=== PATIENT | female | born 1990 | race Two or more races ===

== ENCOUNTER 2025-05-04 15:25 | Emergency (ER) | payer MEDICAID, SELFPAY ==
[2025-05-04 15:30] VITALS: BP 136/73; PULSE 119; RESP 20; TEMP 36.9; O2SAT 95
--- NOTE | 2025-05-04 16:18 | PD.EDADULT ---
ED General RME/HPI General Chief complaint: General Adult/Misc Complain Stated complaint: SOMETHING IS UP MY VAGINA THAT I CAN'T GET OUT Time Seen by Provider: 05/04/25 15:31 Arrival date/time: 05/04/25 15:25 RME / HPI RME / HPI narrative: 35 year old female, A2, presents to the ED for evaluation of a retained tampon. She reports that approximately 4 hours ago, she used tightly rolled toilet paper as a makeshift tampon. The patient went out afterward, consumed alcohol, and had sexual intercourse. Later, she remembered the tampon and attempted removal but was unsuccessful. Denies any associated symptoms such as vaginal pain, abnormal discharge. Related Data Previous Rx's ?Medication ?Instructions ?Recorded Vitamin * 1 tab PO QDAY #30 tabs 09/03/15 Allergies Allergy/AdvReac Type Severity Reaction Status Date / Time No Known Allergies Allergy Verified 05/04/25 15:28 Review of Systems Review of Systems Systems Reviewed: All systems reviewed, normal except as documented Past Medical History Social History SMOKING STATUS: Current some day smoker ED Exam Narrative Physical exam: Constitutional: Awake, alert, nontoxic, no acute distress HEENT: NC, AT, EOMI Neck: Supple CV: RRR, no m/r/g Lungs: CTAB, no respiratory distress. Abd: Soft, NT, NT, no HSM noted to palpation : Moderately large amount of retained foreign body in the vaginal vault consistent with blood soaked tissue. Extremities: No deformities Neuro: AAOx3 Skin: Warm, dry, intact Course Course Course Narrative: Moderately large amount of retained foreign body in the vaginal vault consistent with blood soaked tissue. This was all removed with ring forceps. The patient was examined with speculum and no further foreign bodies found. Quality Measures none Vital Signs Vital signs: Vital Signs Temperature 98.4 F 05/04/25 15:30 Pulse Rate 119 H 05/04/25 15:30 Respiratory Rate 20 05/04/25 15:30 Blood Pressure 136/73 H 05/04/25 15:30 Pulse Oximetry (%) 95 05/04/25 15:30 Oxygen Delivery Method Room Air 05/04/25 15:30 Pulse ox is 95% on room air which is adequate. Discharge Plan Plan Patient Disposition: HOME (Self Care) Patient condition on transfer: Stable Prescriptions/Referrals Prescriptions/Med Rec: No Action Vitamin * 1 EACH tablet 1 tab PO QDAY Qty: 30 11RF Problem List Clinical Impression: Retained tampon Patient/Caregiver Discharge Instructions Education Materials: ED FOREIGN BODY Vaginal Adult Additional Instructions: Additional mental health resources can be found at [email or web address] Chew, look under resources, seminars. Print Language: Kinyarwanda Stand Alone Forms: Delmi Award Info., Patient Portal Info Letter MDM Narrative MDM hospital course: Stcay Rivera am scribing for and in the presence of Dr. Adams. Clinical Information Provided by patient Medical Records Reviewed None Meds/Rx Considered, not Ordered None Labs/Rad/Tests considered, not Ordered None Chronic Illness/Social Conditions which may negatively complicate care or outcome(s)-explain: ETOH/drugs/substance abuse EKG EKG not done Lab Interpretation Labs: none Imaging Imaging interpretation: none Medication Administration(s) none Diagnosis Most likely dx, and/or detailed dx discussion: Retained tampon Dispositon Disposition: Discharge Home
== END 2025-05-04 17:30 | disposition left against medical advice (07) ==
LOC: SERX 16:39
PROVIDERS: Emergency Provider Family Medicine
DX: T19.2XXA Foreign body in vulva and vagina, initial encounter (principal); W44.9XXA Unspecified foreign body entering into or through a natural orifice, initial encounter
CPT/HCPCS: 99282

== ENCOUNTER 2025-05-10 19:08 | Emergency (ER) | payer MEDICAID, SELFPAY ==
[2025-05-10 19:26] VITALS: BMI 24.5
--- NOTE | 2025-05-10 19:30 | EKG_ITS ---
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: : 1990 Requested By: Collette Bonilla Order Number: [id number] Reading MD: Collette Bonilla Measurements Intervals [place] Rate: 80 P: 71 SD: 136 QRS: -85 QRSD: 88 T: 63 QT: 391 QTc: 454 Interpretive Statements SINUS RHYTHM WITH OCCASIONAL VENTRICULAR PREMATURE COMPLEXES INDETERMINATE AXIS LOW QRS VOLTAGE IN PRECORDIAL LEADS [QRS DEFLECTION < 1.0 mV IN CHEST LEADS] PATTERN CONSISTENT WITH PULMONARY DISEASE POSSIBLE RIGHT VENTRICULAR CONDUCTION DELAY [RSR (QR) IN V1/V2] LEFT ANTERIOR FASCICULAR BLOCK [QRS AXIS <= -45, QR IN I, RS IN II] POSSIBLE SEPTAL MYOCARDIAL INFARCTION , PROBABLY OLD [30 ms Q WAVE IN V1/V2] No previous ECG available for comparison /store/S0/[id number]/[id number].pdf
--- NOTE | 2025-05-10 19:30 | XR_ITS ---
Examination: PA chest single view TECHNIQUE: Upright PA chest single view Date and time: May 10, 2025 1949 hours INDICATIONS: Cardiac palpitations today. FINDINGS: Normal heart size. Lungs are clear. Osseous structures are intact. IMPRESSION: No active disease.
--- NOTE | 2025-05-10 19:32 | PD.EDALCOH ---
ED Alcohol RME/HPI General Chief Complaint: Alcohol Stated Complaint: ETOH WITHDRAWL Time Seen by Provider: 05/10/25 19:17 Source: patient and family Arrival date/time: 05/10/25 19:08 Mode of arrival: ambulatory Limitations: no limitations RME / HPI RME / HPI narrative: Patient is here with alocohol intoxication and anxiety. She states person's close to her have recently. Just prior to her arrival, she felt anxious, had palpitations, and had distal parethesias. Related Data Previous Rx's ?Medication ?Instructions ?Recorded Vitamin * 1 tab PO QDAY #30 tabs 09/03/15 Allergies Allergy/AdvReac Type Severity Reaction Status Date / Time No Known Allergies Allergy Verified 05/10/25 19:25 Review of Systems Review of Systems Systems Reviewed: All systems reviewed, normal except as documented ED Exam General Limitations: Present no limitations General appearance: Present alert and appears intoxicated Head Head exam: Present atraumatic Eye Eye exam: Present normal appearance, PERRL and EOMI ENT ENT exam: Present normal exam, normal oropharynx and mucous membranes moist Neck Neck exam: Present normal inspection, full ROM and trachea midline Chest Chest inspection: Present normal inspection and symmetric chest wall rise Respiratory Respiratory exam: Present normal lung sounds bilaterally Cardiovascular Cardiovascular exam: Present regular rate, normal rhythm and normal heart sounds Abdominal Exam Abdominal exam: Present soft and normal bowel sounds Extremities Exam Extremities exam: Present normal inspection and full ROM Back Exam Back exam: Present normal inspection and full ROM Neurological Exam Neurological exam: Present alert and oriented X3 Psychiatric Psychiatric exam: Present other (Anxious, depressed, and tearful) Skin Skin exam: Present warm, dry, intact and normal color Course Quality Measures none Orders Category Date Time Status EKG (ED ONLY) *Do not use* NOW Care 05/10/25 19:30 Completed EKG (ED Only) Stat Exams 05/10/25 19:30 Draft XR chest 1V Stat Exams 05/10/25 19:30 Completed Alcohol, Blood Medical Stat Lab 05/10/25 20:00 Completed BNP [B-Type Natriuretic Peptide] Stat Lab 05/10/25 20:00 Completed CBC Stat Lab 05/10/25 20:00 Completed CMP [Comprehensive Metabolic Panel] Stat Lab 05/10/25 20:00 Completed Drug Screen,Urine Stat Lab 05/10/25 20:30 Completed HCG,Qualitative Serum Stat Lab 05/10/25 20:00 Completed Lipase Stat Lab 05/10/25 20:00 Completed Mag [Magnesium] Stat Lab 05/10/25 20:00 Completed TSH [Thyroid Stimulating Hormone] Stat Lab 05/10/25 20:00 Completed Troponin I Stat Lab 05/10/25 20:00 Completed Vital Signs Vital signs: Vital Signs Temperature 98.4 F 05/10/25 20:08 Pulse Rate 74 05/10/25 20:08 Respiratory Rate 18 05/10/25 20:08 Blood Pressure 108/76 05/10/25 20:08 Pulse Oximetry (%) 98 05/10/25 20:08 Oxygen Delivery Method Room Air 05/10/25 20:08 Discharge Plan Plan Patient Disposition: Left Against Medical Advice Prescriptions/Referrals Prescriptions/Med Rec: No Action Vitamin * 1 EACH tablet 1 tab PO QDAY Qty: 30 11RF Referrals: No Primary/Family,Physician [Primary Care Provider] - In 1 week Problem List Clinical Impression: Alcoholic intoxication Patient/Caregiver Discharge Instructions Print Language: Barbadian Alcohol MDM Narrative MDM Narrative: Patient is here with alocohol intoxication and anxiety. She states person's close to her have recently. Just prior to her arrival, she felt anxious, had palpitations, and had distal parethesias. On exam, patient is anxious appearing and tearful. She was initially seen by me during the triage process. Workup was initiated, however patient left AGAINST MEDICAL ADVICE afterwards. Patient data External records reviewed:: None Clinical information provided by:: patient and family Social determinants that could affect healthcare access:: alcohol use Patient has the following chronic illnesses:: n/a How is presenting disease/condition affected by chronic disease/condition?: no chronic disease Evaluation data The following diagnostics were reviewed and interpreted by me:: lab results Lab and/or radiology exams considered but not ordered:: n/a Interpretation Summary: Elevated alcohol level Medications / Prescriptions Medications or Prescriptions considered but not ordered:: n/a Medication administrations:: n/a Consultations Consultation(s) initiated? (list below): No Diagnosis Differential diagnosis alcohol: alcohol intoxication, alcohol withdrawal syndrome and alcohol withdrawal seizure Most likely diagnosis given after review of the tests above:: Alcohol abuse Admission Indicated Admission indicated?: not indicated Admission Request Was there a request for admission?: No Disposition Plan Disposition Plan: other (specify) (Patient left AGAINST MEDICAL ADVICE)
[2025-05-10 20:08] VITALS: BP 108/76; PULSE 74; RESP 18; TEMP 36.9; O2SAT 98
[2025-05-10 20:16] LABS: Basophils # (Auto) 0.1 Thou/mm3 (0.0-0.2); Basophils % (Auto) 2 % (0-2.5); Eosinophils # (Auto) 0.1 Thou/mm3 (0.0-0.5); Eosinophils % (Auto) 2 % (0-10); Hematocrit 43.3 % (36.0-46.0); Hemoglobin 14.3 g/dL (12.0-16.0); Immature Granulocytes Auto 0.01 Thou/mm3 (0.00-0.00); Lymphocytes # (Auto) 2.2 Thou/mm3 (1.0-4.8); Lymphocytes % (Auto) 50 % (10-50); Mean Corpuscular HGB Conc 33.0 g/dl (31.0-37.0); Mean Corpuscular Hemoglobin 32.1 pg (25.0-35.0); Mean Corpuscular Volume 97 fL (80-100); Monocytes # (Auto) 0.4 Thou/mm3 (0.0-0.8); Monocytes % (Auto) 9 % (0-12); Neutrophils # (Auto) 1.6 Thou/mm3 (1.8-7.7); Neutrophils % (Auto) 37 % (37-80); Nucleated Red Blood Cell # 0.00 Thou/mm3 (0.00-0.00); Nucleated Red Blood Cell % 0 /100 WBC (0); Platelet Count 167 Thou/mm3 (140-440); RDW Standard Deviation 56.4 fL (36.4-46.3); Red Blood Count 4.46 Miln/mm3 (4.00-5.20); White Blood Count 4.4 Thou/mm3 (3.6-11.0)
[2025-05-10 20:44] LABS: Alanine Aminotransferase 58 U/L (10-49); Albumin, Serum 4.7 gm/dL (3.5-5.0); Albumin/Globulin Ratio 1.5 (1.2-2.2); Alkaline Phosphatase 98 U/L (46-116); Anion Gap 17 (7-16); Aspartate Amino Transferase 137 U/L (0-34); BUN/Creatinine Ratio 7 Ratio (12-20); Bilirubin,Total 0.7 mg/dL (0.3-1.2); Blood Urea Nitrogen < 5 mg/dL (9-23); Calcium 9.0 mg/dL (8.3-10.6); Calcium (Corrected) 9.0 mg/dL (8.5-10.1); Carbon Dioxide 24.4 mMol/L (20.0-31.0); Chloride 100 mMol/L (98-107); Creatinine (Component) 0.7 mg/dL (0.6-1.3); Estimated Creatinine Clearance 94.3 mL/min (>60); Globulin 3.1 gm/dL (2.3-3.5); Glucose 97 mg/dL (74-106); Lipase 111 U/L (12-53); Magnesium 2.0 mg/dL (1.6-2.6); Osmolality,Calculated 278 (275-295); Potassium 3.6 mMol/L (3.4-5.1); Sodium 141 mMol/L (136-145); Thyroid Stimulating Hormone 2.02 uIU/mL (0.55-4.78); Total Protein 7.8 gm/dL (5.7-8.2); Troponin I < 0.002 ng/mL (0.0-0.045); eGFR > 60 See Note
[2025-05-10 20:49] LABS: B-Type Natriuretic Peptide < 20 pg/mL (0-100)
[2025-05-10 20:51] LABS: Alcohol, Blood Medical 425.5 mg/dL (0-10.0)
[2025-05-10 20:52] LABS: HCG,Qualitative Serum Negative
[2025-05-10 20:55] LABS: Amphetamine/Methamp Scrn,U Negative (Negative); Barbiturate Screen,Urine Negative (Negative); Benzodiazepines Screen,Urine Negative (Negative); Benzoylecgonine Screen, Ur Negative (Negative); Fentanyl Screen,Urine Negative (Negative); Opiate Screen,Urine Negative (Negative); THC Screen,Urine Negative (Negative)
== END 2025-05-10 20:30 | disposition left against medical advice (07) ==
PROVIDERS: Physician Assistant Medical; Emergency Provider Emergency Medicine
DX: F10.129 Alcohol abuse with intoxication, unspecified (principal); F41.9 Anxiety disorder, unspecified; Z53.29 Procedure and treatment not carried out because of patient's decision for other reasons
CPT/HCPCS: 36415; 71045; 80053; 80307; 80320; 83690; 83735; 83880; 84443; 84484; 84703; 85025; 93005; 99283; G0480

== ENCOUNTER 2025-05-11 03:38 | Observation (INO) | payer MEDICAID, SELFPAY ==
[2025-05-11] VITALS (12 sets, daily range): BP systolic 95–132; BP diastolic 65–96; PULSE 66–87; RESP 15–98; TEMP 36.1–37; O2SAT 96–100; BMI 24.5
--- NOTE | 2025-05-11 03:58 | PD.EDRME ---
Rapid Medical Screening Exam RME Arrival date/time: 05/11/25 03:38 This is a case of 35-year-old female who came in in the emergency room due to alcohol intoxication patient was seen here yesterday but left AGAINST MEDICAL ADVICE now patient was complaining of chest pain and shortness of breath and keeps shaking tests decided to start consult here in the emergency room Chief Complaint: Alcohol Vital signs: Vital Signs Temperature 98.6 F 05/11/25 03:42 Pulse Rate 87 05/11/25 03:42 Respiratory Rate 19 05/11/25 03:42 Blood Pressure 109/80 05/11/25 03:42 Pulse Oximetry (%) 98 05/11/25 03:42 Oxygen Delivery Method Room Air 05/11/25 03:42
[2025-05-11 05:21] LABS: Lactate (Lactic Acid) 5.3 mMol/L (0.4-2.0)
[2025-05-11 05:42] LABS: B-Type Natriuretic Peptide < 20 pg/mL (0-100); D-Dimer 288 ng/mL (<600); LDH (Lactate Dehydrogenase) 317 U/L (120-246); Troponin I < 0.002 ng/mL (0.0-0.045)
[2025-05-11 06:02] LABS: Collection Type, Urine Voided
[2025-05-11] MEDS: ONDANSETRON INJ 2 MG/ML INJ 2 ML 4 MG IVP (06:02)
[2025-05-11] MEDS: SODIUM CHLORIDE 0.9% 1000 ML 1,000 ML 999 ML IV (06:02)
--- NOTE | 2025-05-11 06:09 | PD.EDADULT ---
ED General RME/HPI General Chief complaint: Alcohol Stated complaint: ALCOHAL Time Seen by Provider: 05/11/25 03:58 Arrival date/time: 05/11/25 03:38 RME / HPI RME / HPI narrative: 05/11/25 03:38 This is a case of 35-year-old female who came in in the emergency room due to alcohol intoxication patient was seen here yesterday but left AGAINST MEDICAL ADVICE now patient was complaining of chest pain and shortness of breath and keeps shaking tests decided to start consult here in the emergency room 35-year-old female with no known past medical history comes into the ED with chief complaint of shaking and anxiety. Patient had been drinking for multiple months now every day both beer and hard liquor, but is not state an actual amount. She stated that her last alcoholic drink was yesterday in the afternoon. Mentioned that right now she has been feeling like she gets a headache and has tactile disturbances. Otherwise has no other associated complaints including nausea, chest pain, vomit, SOB, abdominal pain. Admits vaping, previous cocaine use 1 month ago, alcohol, and no other illicit drugs. Related Data Previous Rx's ?Medication ?Instructions ?Recorded Vitamin * 1 tab PO QDAY #30 tabs 09/03/15 Allergies Allergy/AdvReac Type Severity Reaction Status Date / Time No Known Allergies Allergy Verified 05/11/25 03:42 Review of Systems Review of Systems Systems Reviewed: All systems reviewed, normal except as documented Past Medical History Social History SMOKING STATUS: Current some day smoker ED Exam Narrative Physical exam: Gen: A&O X 3, NAD HEENT: NCAT, EOMI, Pupils reactive JOSE LUIS, not icteric. External ears normal. No rhinorrhea. Moist mucous membranes. Neck: Supple, full range of motion, no observable masses, No meningeal sign. Lungs: No Respiratory distress, clear bilateral. CV: RRR, no murmurs. Abdomen: Soft, nondistended, No rebound tenderness. MSK: No joint swelling, no redness, peripheral pulses presents, lumbar with no edema. Asterexis present, tremors in all extremities at rest. Skin: No rashes, petechiae, lesions. Neuro: No focal neurological deficits appreciated, sensory and motor intact. Psych: Cooperative, appropriate mood and effect. Course Quality Measures none Orders Category Date Time Status COVID-19 Screening Questionnaire NOW Care 05/11/25 07:23 Active Decision to Admit X1 Care 05/11/25 07:23 Active EKG (ED ONLY) *Do not use* NOW Care 05/11/25 04:02 Completed Saline [Insert IV] NOW Care 05/11/25 05:33 Active Straight [In and Out Catheter] X1 Care 05/11/25 05:33 Active EKG (ED Only) Stat Exams 05/11/25 03:57 Ordered EKG (ED Only) Stat Exams 05/11/25 04:02 Ordered Alcohol, Blood Medical Stat Lab 05/11/25 04:58 Completed BNP [B-Type Natriuretic Peptide] Stat Lab 05/11/25 04:58 Completed D-Dimer Stat Lab 05/11/25 04:58 Completed Drug Screen,Urine Stat Lab 05/11/25 05:47 Completed LDH (Lactate Dehydrogenase) Stat Lab 05/11/25 04:58 Completed Lactic Acid [Lactate (Lactic Acid)] Stat Lab 05/11/25 04:58 Results Troponin I Stat Lab 05/11/25 04:58 Completed Urinalysis Stat Lab 05/11/25 05:47 Completed Folic Acid Inj Med 05/11/25 06:17 Discontinued 1 mg IVP X1 ONE Midazolam Inj [Versed Inj] Med 05/11/25 06:17 Discontinued 1 mg IVP X1 ONE Ondansetron Inj [Zofran Inj] Med 05/11/25 05:33 Discontinued 4 mg IVP X1 ONE Sodium Chloride 0.9% 1000 ml [Ns] 1,000 ml Med 05/11/25 05:33 Discontinued IV 999 mls/hr Thiamine Inj [Vitamin B-1 Inj] Med 05/11/25 06:17 Discontinued 100 mg IVP X1 ONE Vital Signs Vital signs: Vital Signs Temperature 98.6 F 05/11/25 03:42 Pulse Rate 87 05/11/25 03:42 Respiratory Rate 19 05/11/25 03:42 Blood Pressure 109/80 05/11/25 03:42 Pulse Oximetry (%) 98 05/11/25 03:42 Oxygen Delivery Method Room Air 05/11/25 03:42 Discharge Plan Plan Patient Disposition: Admit Acute Care w/in Hospital Prescriptions/Referrals Prescriptions/Med Rec: No Action Vitamin * 1 EACH tablet 1 tab PO QDAY Qty: 30 11RF Referrals: Sree Holden MD [Primary Care Provider] - In 1 week Problem List Clinical Impression: Alcohol withdrawal Patient/Caregiver Discharge Instructions Print Language: Solomon Islander Stand Alone Forms: Delmi Award Info., Patient Portal Info Letter MDM Narrative MDM hospital course: Patient was seen and evaluated upon arrival. Patient's labs look fairly unremarkable other than lactic acidosis and elevated LDH and lipase. Patient's initial alcohol levels were 425.5 and downtrended to 225.6. CIWA score was 12-13 on my evaluation. Ordered folic acid, thiamine, and versed 1 mg. 7:22: Spoke with IM team for hospital admission at this time. Will assess the patient for a hospital admission. Case disclosed with Attending Dr. Bob Feliz PGY2 Disclaimer: Even though this this note was dictated by speech recognition and even though it was carefully revised there may still be minor errors in solutions architect consultant due to voice recognition software. Medication Administration(s) Medication Administration History Discontinued Medications Folic Acid (Folic Acid Inj 1 Mg/0.2 Ml) 1 mg IVP X1 ONE Stop: 05/11/25 06:18 Last Admin: 05/11/25 06:30 Dose: 1 mg Documented By: RMOAN Sodium Chloride (Ns) 1,000 mls @ 999 mls/hr IV .Q1H1M ONE Stop: 05/11/25 06:33 Last Admin: 05/11/25 06:02 Dose: 999 mls/hr Documented By: SRINI Midazolam HCl (Midazolam Inj 1 Mg/Ml Vial 2 Ml) 1 mg IVP X1 ONE Stop: 05/11/25 06:18 Last Admin: 05/11/25 06:30 Dose: 1 mg Documented By: ROMAN Ondansetron HCl (Ondansetron Inj 2 Mg/Ml Inj 2 Ml) 4 mg IVP X1 ONE; Protocol Stop: 05/11/25 05:34 Last Admin: 05/11/25 06:02 Dose: 4 mg Documented By: CCT Thiamine HCl (Thiamine Inj 100 Mg/Ml Vial 2 Ml) 100 mg IVP X1 ONE Stop: 05/11/25 06:18 Last Admin: 05/11/25 06:32 Dose: 100 mg Documented By: [email or web address]
[2025-05-11 06:15] LABS: Amphetamine/Methamp Scrn,U Negative (Negative); Barbiturate Screen,Urine Negative (Negative); Benzodiazepines Screen,Urine Negative (Negative); Benzoylecgonine Screen, Ur Negative (Negative); Fentanyl Screen,Urine Negative (Negative); Opiate Screen,Urine Negative (Negative); THC Screen,Urine Negative (Negative)
[2025-05-11 06:23] LABS: Bilirubin,Urine Negative (Negative); Blood,Urine Negative (Negative); Clarity,Urine Turbid (Clear/Hazy); Color,Urine Yellow (Lt Yel-Yel); Glucose, Urine Negative (Negative); Ketones,Urine 1+ (Negative); Leukocyte Esterase,Urine Negative (Negative); Nitrite,Urine Negative (Negative); PH,Urine 7.5 (5.0-7.0); Protein,Urine 1+ (Neg - Trace); RBC,Urine 2 /hpf (0-3); Specific Gravity,Urine 1.031 (1.001-1.035); Squamous Epithelial Cell,Urine 6 /hpf (0-5); Urobilinogen,Urine 12 mg/dL (0.0-1.0); WBC,Urine 2 /hpf (0-5)
[2025-05-11] MEDS: MIDAZOLAM INJ 1 MG/ML VIAL 2 ML IVP (06:30)
[2025-05-11] MEDS: FOLIC ACID INJ 1 MG/0.2 ML IVP (06:30)
[2025-05-11] MEDS: THIAMINE INJ 100 MG/ML VIAL 2 ML IVP (06:32)
[2025-05-11 08:19] LABS: Reflex Lactate? Y
[2025-05-11 09:28] LABS: Lactic Acid, 3 HR 3.0 mMol/L (0.4-2.0)
--- NOTE | 2025-05-11 10:31 | PC.NURSE ---
CALLED DR. HERMOSILLO RE: NEED OF CIWA MEDS. PT HAS A CIWA OF 14 AND NO PROTOCOL MEDS ORDERED. SHE SAID SHE WOULD PUT THEM IN RIGHT AWAY. NOTED.
[2025-05-11] MEDS: SODIUM CHLORIDE 0.9% 1000 ML 1,000 ML 75 ML IV ×2 (10:38→22:34)
[2025-05-11] MEDS: DIAZEPAM INJ 5 MG/ML VIAL 2 ML IVP (11:13)
--- NOTE | 2025-05-11 13:34 | ESHP_ITS ---
<Statement entered by Abdoulaye Holden MD - 05/12/25 06:37> Patient was examined and case was reviewed with team including attending physician. Note reviewed, I agree with most of its contents and agree with the patient's care. Abdoulaye Holden MD PGY-2 Documentation for date of: 05/11/25 HPI History of Present Illness History of present illness: 35 y.o F with no known PMH presented to the ED with unremitting tremors for the past 6 hours. Pt presented to the ED with a similar complaint on 05/10 but left Against Medical Advice due to the fact that she was feeling better and didn't want to continue to wait . Patient had been drinking for multiple months now every day both beer and hard liquor, but is not able to state an actual amount. She stated that her last alcoholic drink was yesterday around 3 pm and that she had several shots of liquor and at least a couple beers . Pt endorses one episode of vomiting that occurred sometime this morning. Pt states that she has had 2 prior episodes of seizures, the first occurring 3 years ago and the 2nd occurring 1 year ago. Pt was admitted for alcohol withdrawal. ED course: Vitals: BP: 114/68, O2: 98, HR: 72, RR: 17 Medications: Midazolam HCL 1mg, Ondansetron 4mg, Folic acid 1mg, Thiamine 100mg Labs: Lactic acid 3.0, AST 137, ALT 58, LDH 317, Lipase 113, and Ethyl alcohol 252 Fluids: pt was started on IV saline at 75 ml/hr Review of Systems Review of Systems Narrative Review of Systems: ROS is negative unless mentioned above Past Medical History Family History OTHER FAMILY HX: No relevant Previous Family History Surgical History OTHER SURGICAL HX: pt endorses having history of C sections and 3x procedures Social History SMOKING STATUS: Former smoker SECOND HAND EXPOSURE: No SUBSTANCE USE: marijuana and crack/cocaine (quit a few months ago) SUBSTANCE LAST USED: days (ago) ALCOHOL: Current ALCOHOL FREQUENCY: 3 or More Drinks per Day ALCOHOL LAST INTAKE: Hours (ago) HOUSING: House LIVES WITH: Family Travel History EBOLA RISK: No Exam Vital Signs Temp Pulse Resp BP Pulse Ox O2 Del Method 98.5 F 71 20 104/69 96 Room Air 05/11/25 13:00 05/11/25 13:00 05/11/25 13:00 05/11/25 13:00 05/11/25 13:00 05/11/25 13:00 Narrative Exam General: Awake and in no acute distress. Conversational and non-toxic appearing. HEENT: Normocephalic, atraumatic, mucous membranes moist. Pt endorses mild headache Heart: Regular rate and rhythm, no murmurs. Lungs: Clear to auscultation with no wheezing or crackles. Abdomen: Soft, nondistended, nontender, positive bowel sounds. No guarding or rebound tenderness. Neurologic: Alert and oriented x4, no gross neurological deficit, and patient able to move all 4 extremities. Extremities: No edema, rashes, or discoloration noted bilaterally on Upper or Lower Extremities. Pt has unremitting tactile disturbances in bilateral upper extremities Results: Labs 05/13/25 06:07 05/13/25 06:07 Labs: Cardiac Enzymes 05/11/25 Range/Units 04:58 Troponin I < 0.002 (0.0-0.045) ng/mL Urine 05/11/25 Range/Units 05:47 Urine Color Yellow (Lt Yel-Yel) Urine Clarity Turbid A (Clear/Hazy) Urine pH 7.5 H (5.0-7.0) Ur Specific [place] 1.031 (1.001-1.035) Urine Protein 1+ A (Neg - Trace) Urine Glucose (UA) Negative (Negative) Quality Measures Quality Measures none Medications Home Medications and Allergies Allergies Allergy/AdvReac Type Severity Reaction Status Date / Time No Known Allergies Allergy Verified 05/11/25 03:42 Visit Medications Acetaminophen (Acetaminophen 325 Mg Tablet) 650 mg PO Q6H PRN PRN Reason: Fever >101.5 Stop: 06/10/25 09:29 Chlordiazepoxide HCl (Chlordiazepoxide Hcl 25 Mg Capsule) 25 mg PO Q8HR RUCHI Stop: 05/16/25 11:48 Diazepam (Diazepam Inj 5 Mg/Ml Vial 2 Ml) 2.5 mg IVP X1 PRN PRN Reason: CIWA 8-13 Diazepam (Diazepam Inj 5 Mg/Ml Vial 2 Ml) 5 mg IVP Q2HR PRN PRN Reason: CIWA SCORE 14-19 Stop: 05/16/25 10:42 Last Admin: 05/11/25 11:13 Dose: 5 mg Diazepam (Diazepam Inj 5 Mg/Ml Vial 2 Ml) 5 mg IVP Q1HR PRN PRN Reason: CIWA - Stop: 05/16/25 10:42 Sodium Chloride (Ns) 1,000 mls @ 75 mls/hr IV .[id number] RUCHI Stop: 06/10/25 09:29 Last Admin: 05/11/25 10:38 Dose: 75 mls/hr Discontinued Medications Chlordiazepoxide HCl (Chlordiazepoxide Hcl 25 Mg Capsule) 50 mg PO Q8H [facility] Stop: 05/16/25 11:29 Folic Acid (Folic Acid Inj 1 Mg/0.2 Ml) 1 mg IVP X1 ONE Stop: 05/11/25 06:18 Last Admin: 05/11/25 06:30 Dose: 1 mg Sodium Chloride (Ns) 1,000 mls @ 999 mls/hr IV .Q1H1M ONE Stop: 05/11/25 06:33 Last Infusion: 05/11/25 07:15 Dose: Infused Midazolam HCl (Midazolam Inj 1 Mg/Ml Vial 2 Ml) 1 mg IVP X1 ONE Stop: 05/11/25 06:18 Last Admin: 05/11/25 06:30 Dose: 1 mg Ondansetron HCl (Ondansetron Inj 2 Mg/Ml Inj 2 Ml) 4 mg IVP X1 ONE; Protocol Stop: 05/11/25 05:34 Last Admin: 05/11/25 06:02 Dose: 4 mg Thiamine HCl (Thiamine Inj 100 Mg/Ml Vial 2 Ml) 100 mg IVP X1 ONE Stop: 05/11/25 06:18 Last Admin: 05/11/25 06:32 Dose: 100 mg Assessment & Plan Plan 35-year-old female with no known past medical history presenting with alcohol withdrawal symptoms, including tremors and vomiting, approximately 24 hours after last drink, with history of prior seizures and recent AMA departure from the ED for similar symptoms. #Alcohol Withdrawal Pt endorses history of chronic alcohol abuse. pt presented with unremitting tremors in her bilateral upper extremity. pt endorsing other symptoms of alcohol withdrawal including headache and anxiety. CIWA score: 14 Alcohol level 425.5 on admission. Urine tox negative. Thiamine and folic acid given. Plan: - [facility] protocol initiated to manage acute withdrawal. - Neuro checks Q4H. - Aspiration precautions. - Seizure precautions. - Monitor for electrolyte abnormalities: K, Mg and Phos are common deficiencies that predisposes to arrhythmias/seizures. Replete as needed. #Lactic Acidosis (improving) Lactic acid levels were critically elevated at time of presentation on 05/10 at 5.3. A repeat lactic acid panel taken again when pt re-presented to the ED on 05/11 was 3.0. -trend Lactic Acid #Transaminitis AST: 137, ALT: 58 - CTM plan reviewed by senior resident Dr. Yoder and attending physician Dr. nAgie Ramirez (Medical Student) Attending Provider Attestation/Addendum Milvia Rivera, , attest that I was physically present for the brandt portions of the service and evaluated the patient with the resident and I reviewed and discussed the case with the resident and agree with the resident's findings and plans of care as documented above Patient is a 35-year-old female with past medical history of chronic alcohol use. Patient takes 4 shots and drinks beers daily. She states that she would like to quit drinking and last drink was yesterday around 3 PM. Patient had come to the ED due to her tremors. However, left AMA since she did not want to wait. Patient does endorse having anxiety, headache, nausea and tremors. However, she denies any tactile, visual, auditory hallucinations otherwise. CIWA score in the ED is 14. Will start patient on Librium and taper as needed. Will monitor under CIWA protocol. Transaminitis is consistent with alcoholic hepatitis. Lactic acidosis improving with IV fluid hydration. Will keep patient on IV fluids, thiamine and multivitamin. Will admit patient to telemetry for further workup and medical management of acute alcohol withdrawals. Patient states that she has plans to participate in an program for alcoholics to quit.
[2025-05-11] MEDS: DIAZEPAM INJ 5 MG/ML VIAL 2 ML 2.5 MG IVP (13:41)
[2025-05-11] MEDS: FOLIC ACID 1 MG TABLET PO ×2 (14:56→21:05)
[2025-05-11] MEDS: THIAMINE 100 MG TABLET PO ×2 (14:56→21:05)
[2025-05-11 15:52] LABS: Alcohol, Blood Medical 191.3 mg/dL (0-10.0)
[2025-05-11] MEDS: MULTIVITAMIN 15 ML UDC PO (16:02)
--- NOTE | 2025-05-11 16:55 | PC.NURSE ---
REPORT CALLED TO JHONY ORANTES ON TELE. PT WILL BE TRANSFERRED TO ROOM # [id number].
--- NOTE | 2025-05-11 17:34 | PC.NURSE ---
PT TAKEN TO ROOM #[id number] VIA GURNEY ACCOMPANIED BY RN AND BOYFRIEND. CARE ENDORSED TO [facility] ORANT[facility].
[2025-05-11 18:40] LABS: Lactate (Lactic Acid) 1.3 mMol/L (0.4-2.0)
[2025-05-12] VITALS (9 sets, daily range): BP systolic 113–133; BP diastolic 77–98; PULSE 60–88; RESP 14–98; TEMP 36.1–36.6; O2SAT 96–99
[2025-05-12] MEDS: DIAZEPAM INJ 5 MG/ML VIAL 2 ML 2.5 MG IVP ×2 (02:31→14:43)
[2025-05-12 06:14] LABS: Basophils # (Auto) 0.0 Thou/mm3 (0.0-0.2); Basophils % (Auto) 1 % (0-2.5); Eosinophils # (Auto) 0.1 Thou/mm3 (0.0-0.5); Eosinophils % (Auto) 2 % (0-10); Hematocrit 38.7 % (36.0-46.0); Hemoglobin 13.1 g/dL (12.0-16.0); Immature Granulocytes Auto 0.02 Thou/mm3 (0.00-0.00); Lymphocytes # (Auto) 1.3 Thou/mm3 (1.0-4.8); Lymphocytes % (Auto) 36 % (10-50); Mean Corpuscular HGB Conc 33.9 g/dl (31.0-37.0); Mean Corpuscular Hemoglobin 32.7 pg (25.0-35.0); Mean Corpuscular Volume 97 fL (80-100); Monocytes # (Auto) 0.2 Thou/mm3 (0.0-0.8); Monocytes % (Auto) 7 % (0-12); Neutrophils # (Auto) 1.9 Thou/mm3 (1.8-7.7); Neutrophils % (Auto) 54 % (37-80); Nucleated Red Blood Cell # 0.00 Thou/mm3 (0.00-0.00); Nucleated Red Blood Cell % 0 /100 WBC (0); Platelet Count 143 Thou/mm3 (140-440); RDW Standard Deviation 54.4 fL (36.4-46.3); Red Blood Count 4.01 Miln/mm3 (4.00-5.20); White Blood Count 3.6 Thou/mm3 (3.6-11.0)
[2025-05-12 06:26] LABS: INR 1.1 (0.9-1.3); Partial Thromboplastin Time 27.3 Seconds (22.0-36.0); Prothrombin Time 12.1 Seconds (9.0-12.2)
[2025-05-12 06:36] LABS: Magnesium 1.6 mg/dL (1.6-2.6); Phosphorous 2.5 mg/dL (2.4-5.1); Thyroid Stimulating Hormone 4.38 uIU/mL (0.55-4.78)
[2025-05-12 06:48] LABS: Cardiac Risk Estimate 2.0 RATIO (3.7-5.6); Cholesterol 224 mg/dL (132-200); HDL Cholesterol 114 mg/dL (40-60); LDL Cholesterol,Calculated 91 mg/dL (0-130); Triglycerides 94 mg/dL (30-150)
[2025-05-12 08:19] LABS: Alanine Aminotransferase 47 U/L (10-49); Albumin, Serum 3.8 gm/dL (3.5-5.0); Albumin/Globulin Ratio 1.6 (1.2-2.2); Alkaline Phosphatase 86 U/L (46-116); Anion Gap 12 (7-16); Aspartate Amino Transferase 111 U/L (0-34); BUN/Creatinine Ratio 8 Ratio (12-20); Bilirubin,Total 1.4 mg/dL (0.3-1.2); Blood Urea Nitrogen < 5 mg/dL (9-23); Calcium 9.6 mg/dL (8.3-10.6); Calcium (Corrected) 9.8 mg/dL (8.5-10.1); Carbon Dioxide 25.4 mMol/L (20.0-31.0); Chloride 104 mMol/L (98-107); Creatinine (Component) 0.6 mg/dL (0.6-1.3); Estimated Creatinine Clearance 100.6 mL/min (>60); Globulin 2.4 gm/dL (2.3-3.5); Glucose 79 mg/dL (74-106); Osmolality,Calculated 277 (275-295); Potassium 3.4 mMol/L (3.4-5.1); Sodium 141 mMol/L (136-145); Total Protein 6.2 gm/dL (5.7-8.2); eGFR > 60 See Note
[2025-05-12] MEDS: FOLIC ACID 1 MG TABLET PO ×2 (08:27→20:31)
[2025-05-12] MEDS: THIAMINE 100 MG TABLET PO ×2 (08:27→20:31)
[2025-05-12] MEDS: MULTIVITAMIN 15 ML UDC PO (08:27)
--- NOTE | 2025-05-12 09:09 | PC.SS ---
Patient Shayla Ross is a 35 Year old female admitted for Alcohol Withdrawal. SS met with patient at bedside to discuss discharge plan and verify demographic information. Patient reports she lives at home with her life partner, Joaquim Schmitt [phone] who she reports is her surrogate decision maker. Prior to admission patient did not utilize any source of DME to assist with ambulation. Patient is able to complete all ADL's independently.Choice of pharmacy is [facility]. SS inquired about ETOH resources, however patient was not receptive to them, she reported that she was already seeking help and was going to start a alcohol and Mental health program, SS verbalized understanding. PCP is Sree oHlden. At time of discharge patient will return back home. SS will need to provide transportation. Discharge plan: Home Next of kin, life partner, Joaquim Schmitt [phone] PCP: Serafin Cohen
--- NOTE | 2025-05-12 09:54 | PC.SS ---
SS Follow up note; CIWA Protocol, patient will discharge home within 1-2 days.
[2025-05-12] MEDS: SODIUM CHLORIDE 0.9% 1000 ML 1,000 ML 75 ML IV (11:44)
--- NOTE | 2025-05-12 11:53 | ESPR_ITS ---
<Statement entered by Scarlet Mayen MD - 05/12/25 18:11> Ms. Ross is a 35-year-old female with no past medical history presenting with alcohol withdrawal symptoms and admitted for further management. Patient CIWA score is currently in the range of 2-5, and is tolerating p.o. Librium. Continue with p.o. thiamine and folic acid. Patient is able to walk with slight unsteadiness. Will continue to have patient walk independently but take caution. Dissipate discharge in 24 hours, and can send patient home with 1 to 2 pills of Librium for possible anticipation of further alcohol withdrawal symptoms in the next 1 to 2 weeks. Patient currently agrees with course of plan. I discussed with and supervised the biomedical engineering internship physician who took care of this patient. I personally saw and examined the patient and discussed the assessment and plan with the entire medicine team, including my attending Dr. Adams, I agree with most of the assessment and plan as documented below Scarlet Mayen M.D. PGY-3 Disclaimer: Despite multiple revisions, due to the dictation software being used, the document bellow may not be free of grammatical errors including phonetic/typographic errors. However, this does not deter from our commitment to providing health care in the patient's best interest in mind. Documentation for date of: 05/12/25 Subjective Subjective Interval history: Pt is seen at bedside today and is alert and oriented x4. pt states that her headache is resolved and that her tactile disturbances are much improved bilaterally. she denies having any audio or visual hallucinations. pt states that she feels much better in comparison with her time of admission. pt does not have any further questions or concerns at this time. Exam Vital Signs Temp Pulse Resp BP Pulse Ox O2 Del Method 97.8 F 65 19 131/98 H 98 Room Air 05/12/25 08:00 05/12/25 08:00 05/12/25 08:00 05/12/25 08:00 05/12/25 08:00 05/12/25 08:00 Narrative Exam General: Awake and in no acute distress. Conversational and non-toxic appearing. HEENT: Normocephalic, atraumatic, mucous membranes moist. Heart: Regular rate and rhythm, no murmurs. Lungs: Clear to auscultation with no wheezing or crackles. Abdomen: Soft, nondistended, nontender, positive bowel sounds. No guarding or rebound tenderness. Neurologic: Alert and oriented x4, no gross neurological deficit, and patient able to move all 4 extremities. Extremities: No edema, rashes, or discoloration noted bilaterally on Upper or Lower Extremities. Pt has tactile disturbances in bilateral upper extremities Objective Labs 05/13/25 06:07 05/13/25 06:07 Labs: Laboratory Results - last 24 hr 05/11/25 05/11/25 05/12/25 04:58 18:32 05:40 WBC 3.6 RBC 4.01 Hgb 13.1 Hct 38.7 MCV 97 MCH 32.7 MCHC 33.9 RDW Std Deviation 54.4 H Plt Count 143 Neut % (Auto) 54 Lymph % (Auto) 36 Robeson % (Auto) 7 Eos % (Auto) 2 Baso % (Auto) 1 Neut # (Auto) 1.9 Lymph # (Auto) 1.3 Robeson # (Auto) 0.2 Eos # (Auto) 0.1 Baso # (Auto) 0.0 Immature Gran # (Auto) 0.02 H Absolute Nucleated RBC 0.00 Immature Gran % 1 H Nucleated RBC % 0 PT 12.1 INR 1.1 APTT 27.3 Sodium 141 Potassium 3.4 Chloride 104 Carbon Dioxide 25.4 Anion Gap 12 BUN < 5 L Creatinine 0.6 Estim Creat Clear Calc 100.6 eGFR > 60 BUN/Creatinine Ratio 8 L Glucose 79 Calculated Osmolality 277 Lactic Acid 1.3 Calcium 9.6 Corrected Calcium 9.8 Phosphorus 2.5 Magnesium 1.6 Total Bilirubin 1.4 H D AST 111 H ALT 47 Alkaline Phosphatase 86 Total Protein 6.2 Albumin 3.8 D Globulin 2.4 Albumin/Globulin Ratio 1.6 Triglycerides 94 Cholesterol 224 H LDL Cholesterol, Calc 91 HDL Cholesterol 114 H Cholesterol/HDL Ratio 2.0 L TSH 4.38 D Ethyl Alcohol 191.3 H Quality Measures Quality Measures none Assessment & Plan Assessment Current Active Medications: Generic Name Dose Route Start Last Admin Trade Name Freq PRN Reason Stop Dose Admin Acetaminophen 650 mg 05/11/25 09:30 Acetaminophen 325 Mg Tablet PO 06/10/25 09:29 Q6H PRN Fever >101.5 Chlordiazepoxide HCl 25 mg 05/12/25 21:00 Chlordiazepoxide Hcl 25 Mg Capsule PO 05/17/25 20:59 BID RUCHI Diazepam 5 mg 05/11/25 10:43 05/11/25 11:13 Diazepam Inj 5 Mg/Ml Vial 2 Ml IVP 05/16/25 10:42 5 mg Q2HR PRN Administration CIWA SCORE 14-19 Diazepam 5 mg 05/11/25 10:43 Diazepam Inj 5 Mg/Ml Vial 2 Ml IVP 05/16/25 10:42 Q1HR PRN CIWA 20-25 Diazepam 2.5 mg 05/12/25 06:59 Diazepam Inj 5 Mg/Ml Vial 2 Ml IVP 05/17/25 07:59 Q2HR PRN CIWA 6-13 Folic Acid 1 mg 05/11/25 14:30 05/12/25 08:27 Folic Acid 1 Mg Tablet PO 05/16/25 14:29 1 mg BID RUCHI Administration Sodium Chloride 1,000 mls @ 75 mls/hr 05/11/25 09:30 05/12/25 11:44 Ns IV 06/10/25 09:29 75 mls/hr .[id number] RUCHI Administration Lorazepam 0.5 mg 05/12/25 08:00 Lorazepam 0.5 Mg Tablet PO 05/17/25 07:59 Q4HR PRN CIWA Score 2-6 Multivitamins/Minerals 15 ml 05/11/25 15:30 05/12/25 08:27 Multivitamin 15 Ml Udc PO 06/10/25 15:29 15 ml QDAY RUCHI Administration Ondansetron HCl 4 mg 05/11/25 18:45 Ondansetron Odt 4 Mg Tabrap PO 06/10/25 18:44 Q6HR PRN NAUSEA OR VOMITING Protocol Thiamine HCl 100 mg 05/11/25 14:30 05/12/25 08:27 Thiamine 100 Mg Tablet PO 05/16/25 14:29 100 mg BID RUCHI Administration Plan 35-year-old female with no known past medical history presenting with alcohol withdrawal symptoms, including tremors and vomiting, approximately 24 hours after last drink, with history of prior seizures and recent AMA departure from the ED for similar symptoms. #Alcohol Withdrawal Pt endorses history of chronic alcohol abuse. pt presented with unremitting tremors in her bilateral upper extremity. pt endorsed other symptoms of alcohol withdrawal including headache and anxiety at time of admission. CIWA score: 9 Alcohol level 425.5 on admission. Ethyl alcohol on 8/20 Urine tox negative. Thiamine and folic acid given. Plan: - CIWA protocol initiated to manage acute withdrawal. - Neuro checks Q4H. - Aspiration precautions. - Seizure precautions. - Encourage patient to walk independently or with PT. - Monitor for electrolyte abnormalities: K, Mg and Phos are common deficiencies that predisposes to arrhythmias/seizures. Replete as needed. - Decrease Chlordiazepoxide from TID to BID. - Patient plans to partake in alcohol recovery classes and mental health counseling following discharge. #Lactic Acidosis (resolved) Lactic acid levels were critically elevated at time of presentation on 05/10 at 5.3. A repeat lactic acid panel taken again when pt re-presented to the ED on 05/11 was 3.0. Lactic acid on 05/12 was 1.3 -CTM #Transaminitis- improving AST: 111, ALT: 43 - CTM Health Maintenance DVT prophylaxis: none GI prophylaxis: none Diet: regular Lines: Peripheral IV CODE STATUS: FULL plan reviewed by senior resident Dr. Mayen and attending physician Dr. Angie Ramirez (Medical Student) Attending Provider Attestation/Addendum Miguel, Milvia Adams, , attest that I was physically present for the brandt portions of the service and evaluated the patient with the resident and I reviewed and discussed the case with the resident and agree with the resident's findings and plans of care as documented above Patient seen and evaluated this AM. No acute events overnight. Patient states she is feeling well. She continues to have tremors in her upper extremities, but CIWA score is about 4 this morning. Will taper librium. Patient states she is committed to stop drinking and is actively seeking help. If CIWA score remains <7, anticipate DC within next 24h.
--- NOTE | 2025-05-12 13:16 | PC.PT ---
Patient was seen at 1030. Patient was seen at 1030. Patient wanted to go to restroom. Patient were assess ambulating to the restroom and pushing the IV pole. Patient is steady. No LOB during ambulation. Patient is safe to ambulate. Will cancel PT evaluation. Informed the ordering physician Dr. Craft.
[2025-05-13] VITALS: BP 114/82; PULSE 68; RESP 18; TEMP 36.4; O2SAT 98
[2025-05-13] MEDS: SODIUM CHLORIDE 0.9% 1000 ML 1,000 ML 75 ML IV (00:07)
[2025-05-13 03:38] VITALS: PULSE 83; RESP 100; RESP 18
[2025-05-13 04:00] VITALS: BP 133/74; PULSE 75; RESP 18; TEMP 36.2; O2SAT 99
[2025-05-13 06:28] LABS: Basophils # (Auto) 0.0 Thou/mm3 (0.0-0.2); Basophils % (Auto) 1 % (0-2.5); Eosinophils # (Auto) 0.1 Thou/mm3 (0.0-0.5); Eosinophils % (Auto) 3 % (0-10); Hematocrit 38.1 % (36.0-46.0); Hemoglobin 12.5 g/dL (12.0-16.0); Immature Granulocytes Auto 0.01 Thou/mm3 (0.00-0.00); Lymphocytes # (Auto) 1.2 Thou/mm3 (1.0-4.8); Lymphocytes % (Auto) 31 % (10-50); Mean Corpuscular HGB Conc 32.8 g/dl (31.0-37.0); Mean Corpuscular Hemoglobin 32.2 pg (25.0-35.0); Mean Corpuscular Volume 98 fL (80-100); Monocytes # (Auto) 0.4 Thou/mm3 (0.0-0.8); Monocytes % (Auto) 9 % (0-12); Neutrophils # (Auto) 2.2 Thou/mm3 (1.8-7.7); Neutrophils % (Auto) 56 % (37-80); Nucleated Red Blood Cell # 0.00 Thou/mm3 (0.00-0.00); Nucleated Red Blood Cell % 0 /100 WBC (0); Platelet Count 120 Thou/mm3 (140-440); RDW Standard Deviation 55.3 fL (36.4-46.3); Red Blood Count 3.88 Miln/mm3 (4.00-5.20); White Blood Count 3.9 Thou/mm3 (3.6-11.0)
[2025-05-13 06:50] LABS: Alanine Aminotransferase 36 U/L (10-49); Albumin, Serum 3.8 gm/dL (3.5-5.0); Albumin/Globulin Ratio 1.6 (1.2-2.2); Alkaline Phosphatase 77 U/L (46-116); Anion Gap 11 (7-16); Aspartate Amino Transferase 73 U/L (0-34); BUN/Creatinine Ratio 6 Ratio (12-20); Bilirubin,Total 0.5 mg/dL (0.3-1.2); Blood Urea Nitrogen < 5 mg/dL (9-23); Calcium 9.9 mg/dL (8.3-10.6); Calcium (Corrected) 10.1 mg/dL (8.5-10.1); Carbon Dioxide 26.1 mMol/L (20.0-31.0); Chloride 105 mMol/L (98-107); Creatinine (Component) 0.8 mg/dL (0.6-1.3); Estimated Creatinine Clearance 75.5 mL/min (>60); Globulin 2.4 gm/dL (2.3-3.5); Glucose 120 mg/dL (74-106); Magnesium 1.2 mg/dL (1.6-2.6); Osmolality,Calculated 281 (275-295); Phosphorous 3.3 mg/dL (2.4-5.1); Potassium 3.8 mMol/L (3.4-5.1); Sodium 142 mMol/L (136-145); Total Protein 6.2 gm/dL (5.7-8.2); eGFR > 60 See Note
[2025-05-13 08:00] VITALS: BP 118/70; PULSE 87; RESP 16; TEMP 36.6; O2SAT 98
[2025-05-13] MEDS: MULTIVITAMIN 15 ML UDC PO (09:00)
[2025-05-13] MEDS: FOLIC ACID 1 MG TABLET PO (09:00)
[2025-05-13] MEDS: THIAMINE 100 MG TABLET PO (09:00)
[2025-05-13] MEDS: Magnesium Sulfate 4 GM Ivpb 4 GM/50 ML BAG IV (10:18)
--- NOTE | 2025-05-13 10:53 | ESDS_ITS ---
<Statement entered by Milvia Adams DO - 05/13/25 16:46> I, Milvia Adams DO, attest that I was physically present for the brandt portions of the service and evaluated the patient with the resident and I reviewed and discussed the case with the resident and agree with the resident's findings and plans of care as documented above Planned Discharge Date 05/13/25 DS: Providers Provider Date of admission: 05/11/25 09:30 Primary care physician: Sree Holden MD Admitting Provider: Milvia Adams DO Attending Provider on Admission: Milvia Adams DO Attending Provider on DC: Milvia Adams DO Discharging Provider: Taylor Craft DO Anticipated date of discharge: 05/13/25 DS: Diagnosis Problem List Completed Was Problem List Reviewed/Reconciled?: Yes Hospital Course Hospital Course Hospital course: 35-year-old female with no known medical history was admitted for alcohol withdrawal after presenting with tremors and a recent history of daily alcohol use. She had a prior ED visit for similar symptoms on 05/10 but left AMA. Last drink was the day prior to admission. On admission, she was hemodynamically stable. Labs showed elevated LFTs and ethanol level of 252. She received IV flui ds, thiamine, folic acid, Librium, and was started on the CIWA protocol. CIWA scores remained low. She tolerated oral Librium well and remained clinically stable. Mild tremors persisted, but no seizures or acute events occurred. She ambulated with mild unsteadiness. By day 2, she reported improvement. CIWA score of 1. Librium was tapered. Resources for alcohol cessation were provided to the patient by social media marketing specialist. Patient is medically and physically stable for discharge. Diagnosis: #Alcohol withdrawal syndrome #Alcohol use disorder #Lactic Acidosis #Transaminitis Discharge Plan: Abstain from alcohol. Take chlordiazepoxide 25 mg as needed for anxiety up to 2 times a day. Follow up with PCP within 2 weeks. Return to the ED if symptoms recur or worsen. Case discussed with my senior resident Dr. Moctezuma and my attending . Taylor Craft DO PGY 1 Status at Discharge Overall status at discharge: patient is back to baseline Time Spent with Patient Time attestation: Total time spent providing and/or coordinating discharge services: Time spent: Greater than 30 minutes Exam Vital Signs Temp Pulse Resp BP Pulse Ox O2 Del Method 97.8 F 87 16 118/70 98 Room Air 05/13/25 08:00 05/13/25 08:00 05/13/25 08:00 05/13/25 08:00 05/13/25 08:00 05/13/25 08:00 Narrative Exam Physical Exam: General: Awake and in no acute distress. Conversational and non-toxic appearing. HEENT: Normocephalic, atraumatic, mucous membranes moist. Heart: Regular rate and rhythm, no murmurs. Lungs: Clear to auscultation with no wheezing or crackles. Abdomen: Soft, nondistended, nontender, positive bowel sounds. No guarding or rebound tenderness. Neurologic: Alert and oriented x4, no gross neurological deficit, and patient able to move all 4 extremities. Extremities: No edema. Denies tactile disturbances in bilateral upper extremities. Discharge Plan Plan Patient Disposition: HOME (Self Care) Patient condition on transfer: Stable Care Plan Goals: Abstain from alcohol. Take chlordiazepoxide 25 mg as needed for anxiety up to 2 times a day. Follow up with PCP within 2 weeks. Return to the ED if symptoms recur or worsen. Prescriptions/Referrals Prescriptions/Med Rec: New chlordiazepoxide HCl 25 mg capsule 25 mg PO BID PRN (Reason: anxiety) Qty: 3 0RF Referrals: Sree Holden MD [Primary Care Provider] - Patient/Caregiver Discharge Instructions Education Materials: Alcohol Withdrawal: What to Expect Print Language: Montenegrin Stand Alone Forms: Delmi Award Info., Patient Portal Info Letter, Work/Release Restrictions Discharge Order Discharge Orders: Discharge (Routine); Ordered 05/13/25 Ordered By: Jan Moctezuma Quality Discharge Quality Measures none
[2025-05-13 11:50] VITALS: PULSE 86; RESP 18; RESP 97
[2025-05-13 12:00] VITALS: BP 130/89; PULSE 76; RESP 18; TEMP 36.7; O2SAT 98
== END 2025-05-13 13:03 | disposition home or self-care (01) ==
LOC: SERX 07:24 → SERHOLD 14:26 → S2NX 05-12 08:13 → S3SX 05-13 05:34 → SERHOLD 05-13 05:34
PROVIDERS: Nurse Practitioner Family; Admitting Provider Internal Medicine; PCP Family Medicine; Visit Provider Internal Medicine
DX: F10.139 Alcohol abuse with withdrawal, unspecified (principal); F17.200 Nicotine dependence, unspecified, uncomplicated; Y90.6 Blood alcohol level of 120-199 mg/100 ml; E87.20 Acidosis, unspecified; R74.01 Elevation of levels of liver transaminase levels
CPT/HCPCS: 36415; 80053; 80061; 80307; 80320; 81001; 83605; 83615; 83735; 83880; 84100; 84443; 84484; 85025; 85379; 85610; 85730; 93005; 96361; 96374; 96375; 96376; 99284; G0378; J2250; J2405; J3360; J3411; J3475; J3490; J7030; A9270; G0480

== ENCOUNTER 2025-06-06 15:51 | Emergency (ER) | payer MEDICAID, SELFPAY ==
[2025-06-06] VITALS (11 sets, daily range): BP systolic 103–128; BP diastolic 68–86; PULSE 82–117; RESP 16–22; TEMP 36.1–36.9; O2SAT 81–100
--- NOTE | 2025-06-06 16:00 | EKG_ITS ---
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
--- NOTE | 2025-06-06 16:00 | XR_ITS ---
Examination: AP chest single view Technique: Sitting AP portable chest single view Date and time: June 06, 2025 1647 hrs. Indications: Onset chest pain today. Findings: Mild enlargement cardiac contour. Prominent vascular congestion. There appears to be early bilateral pulmonary edema. The osseous structures are demineralized. Impression: Early CHF
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
[2025-06-06 16:28] LABS: Base Excess -5 (-3-3); HCO3 22 mEq/L (20-26); O2 Saturation 91 % (91-98); PCO2 43 mmHg (32.0-48.0); PO2 71 mmHg (83-108); pH, Arterial 7.31 (7.35-7.45)
[2025-06-06 16:31] LABS: Allen Test Performed/OK; Inspired O2, VO2 Liters 6 L/min; Puncture Site Right Radial
[2025-06-06 16:39] LABS: Basophils # (Auto) 0.1 Thou/mm3 (0.0-0.2); Basophils % (Auto) 1 % (0-2.5); Eosinophils # (Auto) 0.1 Thou/mm3 (0.0-0.5); Eosinophils % (Auto) 1 % (0-10); Hematocrit 36.9 % (36.0-46.0); Hemoglobin 11.8 g/dL (12.0-16.0); Immature Granulocytes Auto 0.03 Thou/mm3 (0.00-0.00); Lymphocytes # (Auto) 2.7 Thou/mm3 (1.0-4.8); Lymphocytes % (Auto) 45 % (10-50); Mean Corpuscular HGB Conc 32.0 g/dl (31.0-37.0); Mean Corpuscular Hemoglobin 31.4 pg (25.0-35.0); Mean Corpuscular Volume 98 fL (80-100); Monocytes # (Auto) 0.6 Thou/mm3 (0.0-0.8); Monocytes % (Auto) 10 % (0-12); Neutrophils # (Auto) 2.6 Thou/mm3 (1.8-7.7); Neutrophils % (Auto) 42 % (37-80); Nucleated Red Blood Cell # 0.00 Thou/mm3 (0.00-0.00); Nucleated Red Blood Cell % 0 /100 WBC (0); Platelet Count 202 Thou/mm3 (140-440); RDW Standard Deviation 55.5 fL (36.4-46.3); Red Blood Count 3.76 Miln/mm3 (4.00-5.20); White Blood Count 6.0 Thou/mm3 (3.6-11.0)
[2025-06-06 16:41] LABS: Amphetamine/Methamp Scrn,U Negative (Negative); Barbiturate Screen,Urine Negative (Negative); Benzodiazepines Screen,Urine Positive (Negative); Benzoylecgonine Screen, Ur Positive (Negative); Fentanyl Screen,Urine Negative (Negative); Opiate Screen,Urine Negative (Negative); THC Screen,Urine Negative (Negative)
[2025-06-06 16:59] LABS: INR 1.0 (0.9-1.3); Partial Thromboplastin Time 20.5 Seconds (22.0-36.0); Prothrombin Time 11.0 Seconds (9.0-12.2)
[2025-06-06 17:08] LABS: Alanine Aminotransferase 19 U/L (10-49); Albumin, Serum 4.4 gm/dL (3.5-5.0); Albumin/Globulin Ratio 1.6 (1.2-2.2); Alcohol, Blood Medical 329.7 mg/dL (0-10.0); Alkaline Phosphatase 60 U/L (46-116); Anion Gap 12 (7-16); Aspartate Amino Transferase 32 U/L (0-34); BUN/Creatinine Ratio 7 Ratio (12-20); Bilirubin,Total 0.4 mg/dL (0.3-1.2); Blood Urea Nitrogen < 5 mg/dL (9-23); Calcium 10.4 mg/dL (8.3-10.6); Calcium (Corrected) 10.4 mg/dL (8.5-10.1); Carbon Dioxide 20.8 mMol/L (20.0-31.0); Chloride 108 mMol/L (98-107); Creatinine (Component) 0.7 mg/dL (0.6-1.3); Globulin 2.7 gm/dL (2.3-3.5); Glucose 90 mg/dL (74-106); Magnesium 2.8 mg/dL (1.6-2.6); Osmolality,Calculated 278 (275-295); Potassium 3.6 mMol/L (3.4-5.1); Sodium 141 mMol/L (136-145); Total Protein 7.1 gm/dL (5.7-8.2); Troponin I < 0.002 ng/mL (0.0-0.045); eGFR > 60 See Note
[2025-06-06 17:09] LABS: B-Type Natriuretic Peptide 25 pg/mL (0-100)
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
--- NOTE | 2025-06-06 17:40 | PC.NURSE ---
Pt. got out of bed and removed O2 to walk to RR, pt. back to bed SpO2 81% on the monitor.
--- NOTE | 2025-06-06 17:58 | PC.NURSE ---
Dr. Hopkins bedside, states to turn off pt.'s O2, O2 turned off and pt. SpO2 went to 83%, Dr. Hopkins states she's going to run some more tests, pt. asks how long am I going to be here, Dr. Hopkins states we don't know yet, maybe a couple of days. Pt. states fuck, and that's another bill, I was just here for withdraws because I'm an alcoholic. Pt. cussing and being rude, Dr. Hopkins was very kind and stated I can't send you home with your oxygen at 81%. Pt. states she wants to eat and Dr. Hopkins states that is fine. Pt. boyfriend states he will leave to go get pt. food.
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
--- NOTE | 2025-06-06 18:20 | PC.NURSE ---
[place] [employer] just called and stated pt.'s kids are with the kids father, [place] [employer] [phone].
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
--- NOTE | 2025-06-06 22:22 | PD.EDADDENDU ---
Emergency Room Addendum Addendum Narrative: Correction to the initial addendum: Upon re-evaluation after a period of time, patient was ambulated throughout the ED and desatted to 90% range, although at rest, patient saturating at 88% per nurse. No signs of respiratory insufficiency at this time. Serial CXR performed and demonstrated slightly worsening interstitial markings in the lower lobes, suggestive of early pneumonia. Patient without signs of respiratory distress. After extended period of observation, patient is considered stable to be discharged home. Will administer dose of Unasyn here and discharge home on Augmentin, metered-dose inhaler, and consider short course of steroids.
== END 2025-06-06 22:30 | disposition home or self-care (01) ==
PROVIDERS: Emergency Medicine; Emergency Provider Emergency Medicine
DX: F10.129 Alcohol abuse with intoxication, unspecified (principal); Y90.8 Blood alcohol level of 240 mg/100 ml or more; E86.0 Dehydration; J18.9 Pneumonia, unspecified organism; R09.02 Hypoxemia; T75.1XXA Unspecified effects of drowning and nonfatal submersion, initial encounter; W16.011A Fall into swimming pool striking water surface causing drowning and submersion, initial encounter; Y92.34 Swimming pool (public) as the place of occurrence of the external cause
CPT/HCPCS: 36415; 36600; 71045; 80053; 80307; 80320; 82803; 83735; 83880; 84484; 85025; 85610; 85730; 93005; 99283; G0480

== ENCOUNTER 2025-06-14 11:01 | Emergency (ER) | payer MEDICAID, SELFPAY ==
--- NOTE | 2025-06-14 11:06 | PD.EDADULT ---
ED General RME/HPI General Chief complaint: Medical Clearance Stated complaint: HALF-WAY CHECK Time Seen by Provider: 06/14/25 11:04 Arrival date/time: 06/14/25 11:01 CC: Medical clearance HPI patient presents to the ER with slurred speech escorted by PD in handcuffs. PD states the patient has ingested alcohol. Patient has no specific complaints of pain denies fever chills chest pain shortness of breath or difficulty breathing. Related Data Previous Rx's ?Medication ?Instructions ?Recorded chlordiazepoxide HCl 25 mg capsule 25 mg PO BID PRN anxiety #3 caps 05/13/25 albuterol sulfate 90 mcg/actuation 2 puff inhalation Q6H PRN 06/06/25 aerosol inhaler shortness of breath or wheezing #8.5 grams amoxicillin 600 mg-potassium 7.5 ml PO BID 10 days #150 mL 06/06/25 clavulanate 42.9 mg/5 mL oral suspension (Augmentin ES-) Allergies Allergy/AdvReac Type Severity Reaction Status Date / Time No Known Allergies Allergy Verified 06/06/25 16:23 Review of Systems Review of Systems Narrative Review of Systems: GEN: No fever, no chills, no weight loss EYES: No discharge, no visual changes, no pain HEENT: No ear pain, no congestion, no sore throat PULM: No shortness of breath, no cough, no congestion CV: No chest pain, no dyspnea on exertion, no palpitations GI: No nausea, no vomiting, no diarrhea, no pain, no constipation : No frequency, no urgency, no dysuria MUSC/SKEL: No joint pain, no back pain SKIN: No rash PSYCH: No hallucinations, no depression HEME/LYMPH: No easy bleeding or bruising tendencies NEURO: No weakness, no headache Past Medical History Past Medical History CARDIAC: Negative Congestive Heart Failure RESPIRATORY: Positive Asthma; Negative Chronic Obstructive Pulmonary Disease (COPD) GENITOURINARY: Negative Renal Disease REPRODUCTIVE: Positive Previous Pregnancies ENDOCRINE: Negative Diabetes Mellitus Type 1 or Diabetes Mellitus Type 2 HEMATOLOGIC: Positive Anemia PSYCHO/SOCIAL: Positive Depression and Anxiety Social History SMOKING STATUS: Former smoker SECOND HAND EXPOSURE: No SUBSTANCE USE: marijuana and crack/cocaine (quit a few months ago) ED Exam Narrative Physical exam: [General: Not in any acute distress Head normocephalic HEENT: Within acceptable limits Neck is supple nontender Chest equal chest rise nontender to palpation Respiratory: Clear to auscultation no wheezes crackles or rubs CV: Rate rhythm is regular no murmurs rubs or clicks Abdomen is soft nontender no masses positive bowel sounds all 4 quadrants Back: No CVA tenderness no spinous process tenderness from cervical spine thoracic and lumbar spine Skin: Intact no petechiae rash induration ulceration or crepitus Extremities: Moving all extremity against resistance cap refill less than 2 seconds neurosensory intact Neuro: Awake alert oriented x3 Glascow coma 15 no focal deficits] Course Quality Measures none Orders Category Date Time Status Alcohol, Urine Stat Lab 06/14/25 11:14 Completed Drug Screen,Urine Stat Lab 06/14/25 11:14 Completed HCG Qualitative,Urine Stat Lab 06/14/25 11:14 Completed Urinalysis Stat Lab 06/14/25 11:14 Completed Vital Signs Vital signs: Vital Signs Temperature 98.1 F 06/14/25 11:15 Pulse Rate 111 H 06/14/25 11:15 Respiratory Rate 16 06/14/25 11:15 Blood Pressure 100/74 06/14/25 11:15 Pulse Oximetry (%) 99 06/14/25 11:15 Oxygen Delivery Method Room Air 06/14/25 11:15 Discharge Plan Plan Patient Disposition: Fpc/Court/Law Patient condition on transfer: Stable Prescriptions/Referrals Prescriptions/Med Rec: No Action amoxicillin-pot clavulanate [Augmentin ES-600] 600-42.9 mg/5 mL suspension for reconstitution 7.5 ml PO BID 10 Days Qty: 150 0RF albuterol sulfate 90 mcg/actuation HFA aerosol inhaler 2 puff inhalation Q6H PRN (Reason: shortness of breath or wheezing) Qty: 8.5 0RF chlordiazepoxide HCl 25 mg capsule 25 mg PO BID PRN (Reason: anxiety) Qty: 3 0RF Referrals: No Primary/Family,Physician [Primary Care Provider] - In 1 week Problem List Clinical Impression: Medical clearance for incarceration Patient/Caregiver Discharge Instructions Print Language: Yi Stand Alone Forms: Delmi Bentley Info. PA/RESTRICTIVE PREPARATION OPERATOR Supervising Physician PA/RESTRICTIVE PREPARATION OPERATOR Supervising Physician: Clyde Golden ENP MDM Narrative Sign Out note: Cleared for snf Clinical Information Provided by: patient Medical Records reviewed [facility]
[2025-06-14 11:12] VITALS: BMI 24.0
[2025-06-14 11:15] VITALS: BP 100/74; PULSE 111; RESP 16; TEMP 36.7; O2SAT 99
[2025-06-14 11:20] LABS: Collection Type, Urine Clean Catch
[2025-06-14 11:36] LABS: HCG Qualitative,Urine Negative
[2025-06-14 11:38] LABS: Amphetamine/Methamp Scrn,U Negative (Negative); Barbiturate Screen,Urine Negative (Negative); Benzodiazepines Screen,Urine Negative (Negative); Benzoylecgonine Screen, Ur Negative (Negative); Fentanyl Screen,Urine Negative (Negative); Opiate Screen,Urine Negative (Negative); THC Screen,Urine Negative (Negative)
[2025-06-14 11:51] LABS: Bacteria,Urine Rare; Bilirubin,Urine Negative (Negative); Blood,Urine Negative (Negative); Clarity,Urine Clear (Clear/Hazy); Color,Urine Colorless (Lt Yel-Yel); Glucose, Urine Negative (Negative); Ketones,Urine Negative (Negative); Leukocyte Esterase,Urine Negative (Negative); Nitrite,Urine Negative (Negative); PH,Urine 6.5 (5.0-7.0); Protein,Urine Negative (Neg - Trace); RBC,Urine 1 /hpf (0-3); Specific Gravity,Urine 1.005 (1.001-1.035); Squamous Epithelial Cell,Urine 3 /hpf (0-5); Urobilinogen,Urine Negative mg/dL (0.0-1.0); WBC,Urine < 1 /hpf (0-5)
[2025-06-14 11:58] LABS: Alcohol, Urine Positive (Negative)
== END 2025-06-14 12:15 ==
PROVIDERS: Registered Nurse General Practice; Emergency Provider Emergency Medicine
DX: Z02.89 Encounter for other administrative examinations (principal); R47.81 Slurred speech; Z65.3 Problems related to other legal circumstances; Z87.891 Personal history of nicotine dependence
CPT/HCPCS: 80307; 80320; 81001; 81025; 99283; G0480

== ENCOUNTER 2025-08-17 18:17 | Emergency (ER) | payer MEDICAID, SELFPAY ==
--- NOTE | 2025-08-17 18:22 | EKG_ITS ---
[facility] Test Date: 2025-08-17 Pat Name: CHERYL ROSEN Department: Room: - Gender: Female Client Services Manager: : 1990 Requested By: Jamel Crook Order Number: [id number] Reading MD: Jamel Crook Measurements Intervals [place] Rate: 94 P: 57 VA: 118 QRS: -59 QRSD: 94 T: 41 QT: 373 QTc: 469 Interpretive Statements SINUS RHYTHM WITH SINUS ARRHYTHMIA WITH SHORT VA INTERVAL LEFT AXIS DEVIATION [QRS AXIS < -30] Compared to ECG 06/06/2025 16:08:35 Short VA interval now present Sinus tachycardia no longer present /store/S0/[id number]/ecg/[id number].pdf
[2025-08-17 18:32] VITALS: BP 128/86; PULSE 94; RESP 22; TEMP 37.7; O2SAT 98; BMI 22.8
--- NOTE | 2025-08-17 19:44 | XR_ITS ---
EXAMINATION: PA chest single view TECHNIQUE: Upright PA chest single view Date and time: August 17, 20252000 hours INDICATIONS: Shortness of breath today. FINDINGS: Normal heart size Mild accentuation of the perihilar markings No lobar pneumonia No pulmonary edema. Intact osseous structures IMPRESSION: Minor accentuation of the perihilar markings No lobar pneumonia or pulmonary edema
--- NOTE | 2025-08-17 19:44 | PD.EDRME ---
Rapid Medical Screening Exam E Arrival date/time: 08/17/25 18:17 35F with history of drug/alcohol presents to ED with withdrawal symptoms including CP and tremors. Patient also did cocaine yesterday. Chief Complaint: Alcohol Vital signs: Vital Signs Temperature 99.9 F 08/17/25 18:32 Pulse Rate 94 08/17/25 18:32 Respiratory Rate 22 H 08/17/25 18:32 Blood Pressure 128/86 H 08/17/25 18:32 Pulse Oximetry (%) 98 08/17/25 18:32 Oxygen Delivery Method Room Air 08/17/25 18:32 Exam: Tremors. Anxious. Clinical Impression: alcohol withdrawal vs cocaine OD vs anxiety
[2025-08-17 19:55] LABS: Lactate (Lactic Acid) 1.9 mMol/L (0.4-2.0)
[2025-08-17 19:59] LABS: Basophils # (Auto) 0.1 Thou/mm3 (0.0-0.2); Basophils % (Auto) 1 % (0-2.5); Eosinophils # (Auto) 0.1 Thou/mm3 (0.0-0.5); Eosinophils % (Auto) 1 % (0-10); Hematocrit 36.5 % (36.0-46.0); Hemoglobin 12.0 g/dL (12.0-16.0); Immature Granulocytes Auto 0.03 Thou/mm3 (0.00-0.00); Lymphocytes # (Auto) 0.8 Thou/mm3 (1.0-4.8); Lymphocytes % (Auto) 11 % (10-50); Mean Corpuscular HGB Conc 32.9 g/dl (31.0-37.0); Mean Corpuscular Hemoglobin 29.2 pg (25.0-35.0); Mean Corpuscular Volume 89 fL (80-100); Monocytes # (Auto) 0.3 Thou/mm3 (0.0-0.8); Monocytes % (Auto) 4 % (0-12); Neutrophils # (Auto) 6.2 Thou/mm3 (1.8-7.7); Neutrophils % (Auto) 84 % (37-80); Nucleated Red Blood Cell # 0.00 Thou/mm3 (0.00-0.00); Nucleated Red Blood Cell % 0 /100 WBC (0); Platelet Count 264 Thou/mm3 (140-440); RDW Standard Deviation 50.2 fL (36.4-46.3); Red Blood Count 4.11 Miln/mm3 (4.00-5.20); White Blood Count 7.5 Thou/mm3 (3.6-11.0)
[2025-08-17 20:19] LABS: Alanine Aminotransferase 19 U/L (10-49); Albumin, Serum 5.3 gm/dL (3.5-5.0); Albumin/Globulin Ratio 1.9 (1.2-2.2); Alcohol, Blood Medical < 3.0 mg/dL (0-10.0); Alkaline Phosphatase 91 U/L (46-116); Anion Gap 17 (7-16); Aspartate Amino Transferase 37 U/L (0-34); BUN/Creatinine Ratio 9 Ratio (12-20); Bilirubin,Total 2.1 mg/dL (0.3-1.2); Blood Urea Nitrogen 6 mg/dL (9-23); Calcium 10.1 mg/dL (8.3-10.6); Calcium (Corrected) 10.1 mg/dL (8.5-10.1); Carbon Dioxide 20.9 mMol/L (20.0-31.0); Chloride 102 mMol/L (98-107); Creatinine (Component) 0.7 mg/dL (0.6-1.3); Estimated Creatinine Clearance 90.4 mL/min (>60); Globulin 2.8 gm/dL (2.3-3.5); Glucose 88 mg/dL (74-106); Magnesium 2.2 mg/dL (1.6-2.6); Osmolality,Calculated 276 (275-295); Potassium 4.2 mMol/L (3.4-5.1); Sodium 140 mMol/L (136-145); Total Protein 8.1 gm/dL (5.7-8.2); Troponin I < 0.002 ng/mL (0.0-0.045); eGFR > 60 See Note
[2025-08-17 20:39] LABS: Collection Type, Urine Clean Catch
[2025-08-17 20:48] LABS: HCG Qualitative,Urine Negative
[2025-08-17 20:52] LABS: Amorphous Crystals,Urine Present (Absent); Bilirubin,Urine Negative (Negative); Blood,Urine Negative (Negative); Clarity,Urine Turbid (Clear/Hazy); Color,Urine Yellow (Lt Yel-Yel); Culture Indicated,Urine Not Indicated; Glucose, Urine Negative (Negative); Ketones,Urine 4+ (Negative); Leukocyte Esterase,Urine Positive (Negative); Nitrite,Urine Negative (Negative); PH,Urine 8.5 (5.0-7.0); Protein,Urine 4+ (Neg - Trace); RBC,Urine 4 /hpf (0-3); Specific Gravity,Urine 1.032 (1.001-1.035); Squamous Epithelial Cell,Urine 63 /hpf (0-5); Urobilinogen,Urine 3.0 mg/dL (0.0-1.0); WBC,Urine 2 /hpf (0-5)
[2025-08-17 21:02] LABS: Amphetamine/Methamp Scrn,U Negative (Negative); Barbiturate Screen,Urine Negative (Negative); Benzodiazepines Screen,Urine Positive (Negative); Benzoylecgonine Screen, Ur Positive (Negative); Fentanyl Screen,Urine Negative (Negative); Opiate Screen,Urine Negative (Negative); THC Screen,Urine Negative (Negative)
[2025-08-17] MEDS: DIAZEPAM 5 MG TABLET 10 MG PO (21:07)
[2025-08-18 00:49] VITALS: BP 123/83; PULSE 80; RESP 20; TEMP 37.1; O2SAT 99
--- NOTE | 2025-08-18 01:35 | PD.EDALCOH ---
ED Alcohol RME/HPI General Chief Complaint: Alcohol Stated Complaint: ALCOHOL WITHDRAWL Arrival date/time: 08/17/25 18:17 RME / HPI RME / HPI narrative: 08/17/25 18:17 35F with history of drug/alcohol presents to ED with withdrawal symptoms including CP and tremors. Patient also did cocaine yesterday. Dr. Patel?s Main ED Evaluation: 35yo female presents to the ED requesting help regarding her alcohol withdrawal symptoms. Patient states she last drank alcohol yesterday morning. She notes she did cocaine yesterday to try to cope. Patient currently denies any symptoms. NKA. Related Data Previous Rx's ?Medication ?Instructions ?Recorded chlordiazepoxide HCl 25 mg capsule 25 mg PO BID PRN anxiety #3 caps 05/13/25 albuterol sulfate 90 mcg/actuation 2 puff inhalation Q6H PRN 06/06/25 aerosol inhaler shortness of breath or wheezing #8.5 grams chlordiazepoxide HCl 25 mg capsule 25 mg PO TID PRN agitation #20 caps 08/18/25 Allergies Allergy/AdvReac Type Severity Reaction Status Date / Time No Known Allergies Allergy Verified 06/06/25 16:23 Review of Systems Review of Systems Systems Reviewed: All systems reviewed, normal except as documented Past Medical History Past Medical History CARDIAC: Negative Congestive Heart Failure RESPIRATORY: Positive Asthma; Negative Chronic Obstructive Pulmonary Disease (COPD) GENITOURINARY: Negative Renal Disease REPRODUCTIVE: Positive Previous Pregnancies ENDOCRINE: Negative Diabetes Mellitus Type 1 or Diabetes Mellitus Type 2 HEMATOLOGIC: Positive Anemia PSYCHO/SOCIAL: Positive Depression and Anxiety Social History SMOKING STATUS: Never smoker SECOND HAND EXPOSURE: No SUBSTANCE USE: marijuana and crack/cocaine (quit a few months ago) ED Exam Narrative Physical exam: Generally patient is alert slightly anxious but no obvious distress head is normocephalic atraumatic, eyes pupils equal round reactive to light, lungs clear to auscultation equal bilaterally, abdomen soft bowel sounds present nondistended nontender, neurologic exam Chloe Coma Scale of 15 without focal motor deficit and no obvious tremor at this time Course Quality Measures none Orders Category Date Time Status EKG (ED ONLY) *Do not use* NOW Care 08/17/25 18:22 Completed EKG (ED Only) Stat Exams 08/17/25 18:22 Draft XR chest 1V portable Stat Exams 08/17/25 19:44 Completed Alcohol, Blood Medical Stat Lab 08/17/25 19:52 Completed CBC Stat Lab 08/17/25 19:52 Completed Comprehensive Metabolic Panel Stat Lab 08/17/25 19:52 Completed Drug Screen,Urine Stat Lab 08/17/25 20:17 Completed HCG Qualitative,Urine Stat Lab 08/17/25 20:17 Completed Lactate (Lactic Acid) Stat Lab 08/17/25 19:52 Completed Magnesium Stat Lab 08/17/25 19:52 Completed Troponin I Stat Lab 08/17/25 19:52 Completed Urinalysis, C/S if Indicated Stat Lab 08/17/25 20:17 Completed Diazepam [Valium] Med 08/17/25 19:44 Discontinued 10 mg PO X1 ONE Vital Signs Vital signs: Vital Signs Temperature 99.9 F 08/17/25 18:32 Pulse Rate 94 08/17/25 18:32 Respiratory Rate 22 H 08/17/25 18:32 Blood Pressure 128/86 H 08/17/25 18:32 Pulse Oximetry (%) 98 08/17/25 18:32 Oxygen Delivery Method Room Air 08/17/25 18:32 Discharge Plan Plan Patient Disposition: HOME (Self Care) Prescriptions/Referrals Prescriptions/Med Rec: New chlordiazepoxide HCl 25 mg capsule 25 mg PO TID PRN (Reason: agitation) Qty: 20 0RF No Action albuterol sulfate 90 mcg/actuation HFA aerosol inhaler 2 puff inhalation Q6H PRN (Reason: shortness of breath or wheezing) Qty: 8.5 0RF chlordiazepoxide HCl 25 mg capsule 25 mg PO BID PRN (Reason: anxiety) Qty: 3 0RF Referrals: Sree Holden MD [Primary Care Provider, Family Practice] - In 1 week Problem List Clinical Impression: Cocaine abuse, Alcohol abuse Patient/Caregiver Discharge Instructions Education Materials: ED Drug Abuse, ED Alcohol Abuse Additional Instructions: Avoid cocaine and alcohol in the future. Take the Librium as prescribed. Print Language: Slovenian Stand Alone Forms: Delmi Award Info., Patient Portal Info Letter Alcohol MDM Narrative MDM Narrative: Scribe Attestation: 08/18/25 Cristal Barlow, am scribing for and in the presence of Dr. Patel. I had a long talk with the patient about her sobriety. She states that she last drink alcohol yesterday morning. She admits to abusing cocaine. She is here to try to stay off those medications. I will help the patient with Librium to be taken as prescribed. She was counseled on the need to avoid alcohol and cocaine. Patient data External records reviewed:: [facility] previous records (Per chart review, patient was seen here on 06/14/25 for medical clearance.) Clinical information provided by:: patient Social determinants that could affect healthcare access:: substance use Patient has the following chronic illnesses:: asthma How is presenting disease/condition affected by chronic disease/condition?: uneffected by Evaluation data The following diagnostics were reviewed and interpreted by me:: lab results, radiology exam(s) and EKG tracing(s) Lab and/or radiology exams considered but not ordered:: none Interpretation Summary: [facility] Report Signed Patient: CHERYL ROSEN. Record#: [id number] Birthdate: 1990 Age/Sex: 35 / F Location: [facility] Attending Dr: Ordering Physician: Seth eBll PA-C Date of Service: 08/17/25 Procedure(s): XR chest 1V portable Accession Number(s): [id number] cc: Sree Holden MD; Sharif Finley MD; Seth Bell PA-C~ EXAMINATION: PA chest single view TECHNIQUE: Upright PA chest single view Date and time: August 17, 2025, 2000 hours INDICATIONS: Shortness of breath today. FINDINGS: Normal heart size Mild accentuation of the perihilar markings No lobar pneumonia No pulmonary edema. Intact osseous structures IMPRESSION: Minor accentuation of the perihilar markings No lobar pneumonia or pulmonary edema Dictated By: Sharif Finley MD Signed By: <Electronically signed by Sharif Finley MD in OV> 08/17/25 7371 Medications / Prescriptions Medications or Prescriptions considered but not ordered:: none Medication administrations:: Medication Administration History Discontinued Medications Diazepam (Diazepam 5 Mg Tablet) 10 mg PO X1 ONE Stop: 08/17/25 19:45 Last Admin: 08/17/25 21:07 Dose: 10 mg Documented By: OA see above Consultations Consultation(s) initiated? (list below): No Diagnosis Differential diagnosis alcohol: other (See MDM) Most likely diagnosis given after review of the tests above:: see clinical impression below Admission Indicated Admission indicated?: not indicated Admission Request Was there a request for admission?: No Disposition Plan Disposition Plan: Discharge Discharge Attestation Discharge Attestation: The patient and all family members were given an opportunity to ask questions and understood the discharge instructions. Discharge instructions specifically effects, indications for sooner follow up or return to the emergency department, and the expected course of current diagnosis. Patient condition: Stable
[2025-08-18 01:57] VITALS: RESP 16
== END 2025-08-18 01:58 | disposition home or self-care (01) ==
PROVIDERS: Physician Assistant; Emergency Provider Emergency Medicine; PCP Family Medicine
DX: F10.239 Alcohol dependence with withdrawal, unspecified (principal); F14.10 Cocaine abuse, uncomplicated; Y90.9 Presence of alcohol in blood, level not specified
CPT/HCPCS: 36415; 71045; 80053; 80307; 80320; 81001; 81025; 83605; 83735; 84484; 85025; 93005; 99283; A9270; G0480

== ENCOUNTER 2025-08-28 10:58 | Emergency (ER) | payer MEDICAID, SELFPAY ==
[2025-08-28 11:26] VITALS: BP 120/86; PULSE 99; RESP 17; TEMP 36.6; O2SAT 96; BMI 20.9
--- NOTE | 2025-08-28 15:44 | EDNOTE_ITS ---
ED Female Urogenital RME/HPI General Chief complaint: Urogenital-Female Stated complaint: Tampon stuck today Time Seen by Provider: 08/28/25 11:43 Arrival date/time: 08/28/25 10:58 Limitations: no limitations RME / HPI RME / HPI Narrative: 35-year-old female here for foreign body in vagina. was having sex this morning forgot she had a tampon in from last night. Partner nor she could reach it. Not concerned about STDs. States was drinking last night and forgot she had it inside. No pelvic pain no fever. Related Data Previous Rx's ?Medication ?Instructions ?Recorded chlordiazepoxide HCl 25 mg capsule 25 mg PO BID PRN an xiety #3 caps 05/13/25 albuterol sulfate 90 mcg/actuation 2 puff inhalation Q 6H PRN 06/06/25 aerosol inhaler shortness of breath or wheez ing #8.5 grams chlordiazepoxide HCl 25 mg capsule 25 mg PO TID PRN ag itation #20 caps 08/18/25 Allergies Allergy/AdvReac Type Severity Reaction Status Date / Time No Known Allergies Allergy Verified 08/28/25 11:03 Review of Systems Review of Systems Systems Reviewed: All systems reviewed, normal except as documented Constitutional Constitutional: Denies fever(s) Genitourinary Genitourinary: Reports as per HPI ED Exam General Limitations: Present no limitations General appearance: Present alert and in no apparent distress Eye Eye exam: Present normal appearance, PERRL and EOMI Respiratory Respiratory exam: Present normal lung sounds bilaterally Cardiovascular Cardiovascular exam: Present regular rate, normal rhythm and normal heart sounds Abdominal Exam Abdominal exam: Present soft and normal bowel sounds External exam: Present normal external exam Speculum exam: Present foreign body (Tampon shifted in horizontal manner and vaginal vault, removed with ring forcep) Extremities Exam Extremities exam: Present normal inspection and full ROM Back Exam Back exam: Present normal inspection and full ROM Psychiatric Psychiatric exam: Present normal affect and normal mood Skin Skin exam: Present warm, dry, intact and normal color Course Quality Measures none Vital Signs Vital signs: Vital Signs Temperature 97.8 F 08/28/25 11:26 Pulse Rate 99 08/28/25 11:26 Respiratory Rate 17 08/28/25 11:26 Blood Pressure 120/86 H 08/28/25 11:26 Pulse Oximetry (%) 96 08/28/25 11:26 Oxygen Delivery Method Room Air 08/28/25 11:26 Urogenital - Female Patient data External records reviewed:: [facility] previous records Clinical information provided by:: patient Social determinants that could affect healthcare access:: other (specify) (No access to PCP and we can) Patient has the following chronic illnesses:: None How is presenting disease/condition affected by chronic disease/condition?: no chronic disease Evaluation data The following diagnostics were reviewed and interpreted by me:: other (specify) (None) Lab and/or radiology exams considered but not ordered:: No imaging or labs warranted at this time Interpretation Summary: None Medications / Prescriptions Medications or Prescriptions considered but not ordered:: Considered antibiotics however tampon was not in longer than 8 hours to be at risk for toxic shock syndrome Medication administrations:: None Consultations Consultation(s) initiated? (list below): No Diagnosis Urogenital Female Differential Diagnosis: urinary tract infection, bacterial vaginosis, cyst of Bartholin's gland and other (Retained condom, retained) Most likely diagnosis given after review of the tests above:: Retained tampon in vaginal vault,removed Admission Indicated Admission indicated?: not indicated Admission Request Was there a request for admission?: No Disposition Plan Disposition Plan: Discharge Discharge Attestation Discharge Attestation: The patient and all family members were given an opportunity to ask questions and understood the discharge instructions. Discharge instructions specifically effects, indications for sooner follow up or return to the emergency department, and the expected course of current diagnosis. Patient condition: Stable Discharge Plan Plan Patient Disposition: HOME (Self Care) Discharge Disposition comment: Follow-up PCP in 2 to 3 days Prescriptions/Referrals Prescriptions/Med Rec: No Action albuterol sulfate 90 mcg/actuation HFA aerosol inhaler 2 puff inhalation Q6H PRN (Reason: shortness of breath or wheezing) Qty: 8.5 0RF chlordiazepoxide HCl 25 mg capsule 25 mg PO BID PRN (Reason: anxiety) Qty: 3 0RF chlordiazepoxide HCl 25 mg capsule 25 mg PO TID PRN (Reason: agitation) Qty: 20 0RF Problem List Clinical Impression: Foreign body in vagina Patient/Caregiver Discharge Instructions Education Materials: ED FOREIGN BODY Vaginal Adult Print Language: Moroccan Stand Alone Forms: Delmi Award Info., Patient Portal Info Letter PA/SYSTEM SUPPORT DEVELOPER Supervising Physician PA/SYSTEM SUPPORT DEVELOPER Supervising Physician: Dr. beyer
== END 2025-08-28 12:12 | disposition home or self-care (01) ==
LOC: SERX 12:10
PROVIDERS: Emergency Provider Emergency Medicine; PCP Family Medicine
DX: T19.2XXA Foreign body in vulva and vagina, initial encounter (principal); W44.8XXA Other foreign body entering into or through a natural orifice, initial encounter
CPT/HCPCS: 99281